=== PATIENT | female | born 1990 | race African-American/Black ===

== ENCOUNTER 2022-11-30 15:29 | Inpatient (IN) | payer SELFPAY ==
[2022-11-30 15:30] VITALS: BP 107/75; PULSE 89; RESP 18; TEMP 36.4; O2SAT 98; BMI 19.7
--- NOTE | 2022-11-30 15:39 | EX.ED.SAOD ---
HPI History of Present Illness Chief Complaint: Substance Abuse Informant: patient Narrative Narrative: Patient presents requesting detox from fentanyl. She does inject. She has never had injection site infections or valvular infections. She tried to go through detox in [place] on Saturday staying over the Saturday of this week. But she states she her nausea and vomiting was so bad she could not stay. She states they only gave her [id number] meds for nausea and she just kept vomiting and so she left. She is not having any physical complaints at this time. She was evidently recently just treated for syphilis and also found out to have hepatitis C and is in the process of further work-up and treatment for this. Her last use of fentanyl was about 5 hours ago. She normally uses 1 to 1-1/2 g/day. She used to be on outpatient Suboxone but relapsed about 5 or 6 weeks ago. She has not been using Suboxone since relapse. [facility] Medical History Hepatitis C Syphilis Medical History no medical history Home Medications NK 11/30/22 [History Last Taken Unknown] Allergy/AdvReac Type Severity Reaction Status Date / Time No Known Allergies Allergy Verified 11/30/22 15:31 Social History Smoking Status: Unknown if ever smoked ROS ROS ED ROS Narrative A complete review of systems was performed and is negative except as documented in the history of present illness. Some specific details below. Constitutional: No recent fevers or chills. No recent infections. EYE: No discharge ENT: No difficulty swallowing. No swelling. No pain. No reflux symptoms. CV: No chest pain palpitations or syncope Respiratory: No coughing or shortness of breath. GI: No abdominal pain. No nausea vomiting diarrhea. No blood in stool. She had nausea and vomiting during her last detox but not currently. : No frequency dysuria or hematuria. Musculoskeletal: No recent trauma. No pains. No swelling. Skin: No rash. Nondiaphoretic. Neuro: No weakness or numbness. Endocrine: No polyuria or polydipsia. EXAM Physical Exam Narrative Exam Narrative: CONSTITUTIONAL: Patient is nontoxic in appearance. The patient looks comfortable. Work of breathing looks normal. HEENT: No notable trauma. Mucous membranes moist. EYES: No conjunctival injection. No icterus noted. NECK:No JVD. No stridor. CARDIOVASCULAR: Regular rate. Regular rhythm. No notable murmur. No JVD. RESPIRATORY: No respiratory distress. Breathing is unlabored. No wheezes. No rhonchi. No rales. No pain with a deep breath. No chest wall tenderness. GASTROINTESTINAL: Not distended. Bowel sounds are normal. No tenderness. No guarding. No rebound. No palpable mass or palpable hepatomegaly. GENITOURINARY: No tenderness over the bladder. No CVA tenderness. MUSCULOSKELETAL: Atraumatic. No peripheral edema. No cord. No tenderness along the deep venous system. No asymmetry. No distended veins. NEUROLOGICAL: Patient is alert and appropriate. No focal deficit noted. SKIN: No noted rashes. No diaphoresis. She has small indication of track alvares in antecubital fossa but none of these look infected. They are not significant scarring. PSYCHIATRIC: Patient is calm. Mood is appropriate. No flight of ideas. Const Vital Signs: 11/30/22 15:30 Temperature 97.5 F L Temperature Source Temporal Pulse Rate 89 Respiratory Rate 18 Blood Pressure 107/75 Blood Pressure Mean 85 Pulse Ox 98 Oxygen Delivery Method Room Air MDM MDM MDM Narrative Medical decision making narrative: I will contact hospitalist to make sure we do have beds available and see what work-up for blood work is preferred. I talked with the hospitalist who placed orders for labs as preferred. We are awaiting the test as this will alter disposition. CBC is overall normal. Coagulation studies are normal. Electrolyte well. Liver function test showed no marked abnormalities. Alcohol level is negative. is negative Lab Data Attestation: I reviewed the patient's lab results. Labs: Laboratory Results - last 24 hr 11/30/22 11/30/22 11/30/22 16:12 16:30 16:32 WBC 9.6 RBC 4.45 Hgb 13.1 Hct 40.6 MCV 91.2 MCH 29.4 MCHC 32.3 RDW Std Deviation 40.6 RDW Coeff of Becki 12.1 Plt Count 313 MPV 8.7 Immature Gran % (Auto) 0.200 Neut % (Auto) 44.3 L Lymph % (Auto) 47.8 H [place] % (Auto) 4.7 Eos % (Auto) 2.8 Baso % (Auto) 0.2 Absolute Neuts (auto) 4.2 Absolute Lymphs (auto) 4.57 H Nucleated RBC % 0 PT 13.9 INR 1.1 Sodium 141 Potassium 3.8 Chloride 108 H Carbon Dioxide 28.0 Anion Gap 5 BUN 8 Creatinine 0.62 Estim Creat Clear Calc 113.80 Est GFR (MDRD) Af Amer 143 Est GFR (MDRD) Non-Af 118 BUN/Creatinine Ratio 12.9 Glucose 94 Calcium 8.8 Total Bilirubin 0.20 AST 10 L ALT 13 Alkaline Phosphatase 88 Total Protein 7.9 Albumin 3.3 Globulin 4.6 H Albumin/Globulin Ratio 0.7 L Serum , Qual NEGATIVE Ethyl Alcohol < 3.0 Management Discussion w/another healthcare provider: Hospitalist Discharge Plan Dx/Rx/DC Orders Clinical Impression: Desire for detoxification, Hx of syphilis, Fentanyl dependence, History of hepatitis C Disposition Disposition: [facility]
--- NOTE | 2022-11-30 15:44 | PCM.HP.STD ---
HPI - General General Date of Admission: 11/30/22 Date of Service: 11/30/22 Chief Complaint: Opioid withdrawal symptoms for a few hours HPI Narrative KERRY DESAI, is a 32 F with history of chronic IV opioid use/fentanyl for about 5 years came to ED for medical stabilization of acute opioid withdrawal symptoms. Patient is stated she takes about 1.5 to 2 g of IV fentanyl daily. She further said that she was sober for 6 months then relapsed about 3 weeks ago. She was on Suboxone heavy dose. Then she started having diarrhea, anxiety and restlessness and took IV fentanyl,. The last dose is about 5 and half hours to keep her sober so that she can come to ED. Prior to this, she tried to go to detox in [place] on Saturday and stayed there until Saturday, then she left probably signed AMA. She had labs drawn there probably on Saturday that came positive for syphilis, and hep C antibody. She further added that the nurse from the health department came today at her home and gave him 1 dose of IM penicillin probably benzathine penicillin. Labs were ordered in ED. Past surgical history: Had hysterectomy for menorrhagia and irregular.. Social history: Chronic fentanyl IV/opioid use: Denies alcohol drinking. Smokes a pack per day since age of 28. Denies other substance use including methamphetamine, crack cocaine, bath salt, ecstasy Family history noncontributory to the present illness [facility] Medical History Hepatitis C Syphilis Medical History no medical history Home Medications NK 11/30/22 [History Last Taken Unknown] Allergy/AdvReac Type Severity Reaction Status Date / Time No Known Allergies Allergy Verified 11/30/22 15:31 Social History Smoking Status: Current every day smoker tobacco type: cigarettes ROS ROS Narrative Constitutional: Reports fatigue and weakness. No fever. HEENT: Reports systems reviewed and no addt'l complaints, except as documented Respiratory/Chest: Mild cough for about 2 days. No acute shortness of breath or respiratory distress or wheezing. CVS: No chest pain but has palpitation and heart racing. Gastrointestinal: Was vomiting about 2 to 3 days ago when she was admitted in [place]. Denies coffee ground emesis, hematemesis. Genitourinary: Had hysterectomy. Denies burning urination or new urinary tract symptoms Musculoskeletal: Denies acute joint pain or limited range of motion. No acute injury Neurologic: Denies seizure-like symptoms. skin: No ulcer. No rash Endocrinology: Reports systems reviewed and no addt'l complaints, except as documented Hematologic/Lymphatic: Reports systems reviewed and no addt'l complaints, except as documented Rest 14 ROS are negative except as mentioned in HPI Vital Signs Vital Signs Vital Signs: 11/30/22 15:30 Temperature 97.5 F L Temperature Source Temporal Pulse Rate 89 Respiratory Rate 18 Blood Pressure 107/75 Blood Pressure Mean 85 Pulse Ox 98 Oxygen Delivery Method Room Air Weight Weight: 122 lb Body Mass Index (BMI) 19.7 Physical Exam Narrative General: Alert, Oriented x3, Cooperative HEENT: Atraumatic, PERRLA, EOMI, Normocephalic Oral: Oral mucosa dry. No Gingival or Mucosal Lesions/ Ulcerations Neck: Supple, No JVD, Negative Carotid Bruits Lungs: Air entry diminished in bilateral lung bases. No crepitation/rhonchi Cardiovascular: Regular rate, Regular Rhythm, Normal S1, Normal S2, No murmurs Abdomen: Bowel Sounds Present, Soft, Non Tender, Non-Distended : No renal angle tenderness. No suprapubic tenderness. Extremities: No edema, Capillary Refill Less than 3 Seconds Skin: needle tracks Scar over bilateral cubital region. Musculoskeletal: No Tenderness to Palpation of Joints or Extremities. ROM full and intact. Neurological: Cranial nerves II-XII grossly intact, DTR 2+/4. No acute focal neurological deficit. Psych/Mental Status: Flat affect, restless. Results Lab / Micro Data 11/30/22 16:12 11/30/22 16:12 Assessment & Plan Assessment/Plan (1) Acute hyperactive opioid withdrawal delirium: PLAN: This 32-year-old female is being admitted for acute opioid withdrawal syndrome. 1. Acute opioid withdrawal syndrome with history of chronic opioid use, dependence and relapse: Patient is being admitted on MedSurg floor. The patient is started on buprenorphine along with other adjunctive medications as needed for medical stabilization as per order set of opioid withdrawal syndrome.Patient also on trazodone, hydroxyzine, gabapentin as needed ordered. Advised quitting opioid use. manager services consult. 2. Chronic cigarette smoking/nicotine use disorder and dependence: On nicotine transdermal patch. 3. Recent diagnosis of chronic hepatitis C and syphilis, unclear of duration/stage of syphilis: As mentioned in HPI, her blood test drawn annual came positive for hep C antibody and syphilis, details of the test is not available for review. Patient had 1 dose of IM benzathine penicillin on both buttocks from nurse of health department. She was not told whether she needs further doses of IM benzathine penicillin. Patient will need to follow-up with ID as an outpatient for further evaluation and management of chronic hepatitis C and specific treponemal test of syphilis. I talked to Dr. Cruz and and no recommendation for further testing while in the hospital but can follow-up in ID clinic. DVT prophylaxis, low risk: Early ambulation encouraged. Labs reviewed. Serum test negative. Liver chemistry actually AST low but otherwise normal. Globulin 4.6. Laboratory Results 11/30/22 16:12: WBC 9.6, RBC 4.45, Hgb 13.1, Hct 40.6, MCV 91.2, MCH 29.4, MCHC 32.3, RDW Std Deviation 40.6, RDW Coeff of Becki 12.1, Plt Count 313, MPV 8.7, Immature Gran % (Auto) 0.200, Neut % (Auto) 44.3 L, Lymph % (Auto) 47.8 H, [place] % (Auto) 4.7, Eos % (Auto) 2.8, Baso % (Auto) 0.2, Absolute Neuts (auto) 4.2, Absolute Lymphs (auto) 4.57 H, Nucleated RBC % 0, Sodium 141, Potassium 3.8, Chloride 108 H, Carbon Dioxide 28.0, Anion Gap 5, BUN 8, Creatinine 0.62, Estim Creat Clear Calc 113.80, Est GFR (MDRD) Af Amer 143, Est GFR (MDRD) Non-Af 118, BUN/Creatinine Ratio 12.9, Glucose 94, Calcium 8.8, Total Bilirubin 0.20, AST 10 L, ALT 13, Alkaline Phosphatase 88, Total Protein 7.9, Albumin 3.3, Globulin 4.6 H, Albumin/Globulin Ratio 0.7 L, Serum , Qual NEGATIVE 11/30/22 16:30: PT 13.9, INR 1.1 11/30/22 16:32: Ethyl Alcohol < 3.0 Charges/Coding Visit Charges Inpatient E&M: 69843 Init Hosp L3
[2022-11-30 16:22] LABS: Absolute Lymphocyte Count 4.57 X10^3/uL (0.83-4.51); Absolute Neutrophil Count 4.2 X10^3/uL (2.0-7.7); Basophil# 0.02 X10^3/uL; Basophil% 0.2 % (0-1); Eosinophil# 0.27 X10^3/uL; Eosinophils% 2.8 % (0-5); Hematocrit 40.6 % (37-47); Hemoglobin 13.1 g/dL (12.0-15.0); Lymphocyte # 4.57 X10^3/ul (0.83-4.51); Lymphocyte % 47.8 % (19-41); Mean Corp Hgb Conc 32.3 g/dL (32-36); Mean Corpuscular Hgb 29.4 pg (27.0-32.0); Mean Corpuscular Volume 91.2 fL (81-99); Mean Platelet Vol. 8.7 fl (6.2-12.0); Monocyte# 0.45 X10^3/uL; Monocyte% 4.7 % (0-10); NRBC Flagged by Analyzer 0 % (0-5); Neutrophil # 4.24 X10^3/uL (2.7-7.7); Neutrophil % 44.3 % (47-70); Platelet Count 313 K/mm3 (150-450); RBC Distribution Width CV 12.1 % (11.6-14.6); RBC Distribution Width SD 40.6 fl (35.1-43.9); Red Blood Count 4.45 M/mm3 (4.2-5.4); White Blood Count 9.6 K/mm3 (4.4-11.0)
--- NOTE | 2022-11-30 16:53 | CM.ED ---
Social Work SW introduced self and role to patient. Pt is here to detox from fentanyl and reports being an IV user. Pt reports she was clean for 6 months and is part of a MAT program in [place]. Pt reports a recent relapse. Pt is possibly interested in rehab after detox, one-eighty to be notified of admission. Valentina Resendiz EMAIL MARKETING ASSISTANT, ETHYLBENZENE CONVERTER OPERATOR
[2022-11-30 16:54] LABS: International Normalized Ratio 1.1; Prothrombin Time (Protime)PT. 13.9 SECONDS (11.7-14.9)
[2022-11-30 16:55] LABS: Internal QC Validated? YES +Cl - CLEAR BKGD; Pregnancy, Serum, hCG Quali. NEGATIVE Negative
[2022-11-30 16:57] LABS: ALB/GLOB Ratio 0.7 RATIO (0.9-2.4); AST(SGOT) 10 U/L (15-37); Alanine Aminotransfer ALT/SGPT 13 U/L (13-56); Albumin, Serum 3.3 g/dL (3.2-5.0); Alkaline Phosphatase 88 U/L (45-117); Anion Gap 5 (5-15); BUN 8 mg/dL (7-18); BUN/Creat Ratio 12.9 RATIO (10-20); Calcium,Total 8.8 mg/dL (8.5-10.1); Chloride 108 mmol/L (98-107); Creatinine, Serum 0.62 mg/dL (0.55-1.02); EST Glomerular Filtration Rate 118 mL/min (>60); Est Glom Filt Rate - Afr Amer 143 mL/min (>60); Globulin 4.6 g/dL (2.2-4.2); Glucose 94 mg/dL (74-106); Potassium 3.8 mmol/L (3.5-5.1); Protein, Total 7.9 g/dL (6.4-8.2); Sodium Level 141 mmol/L (136-145)
[2022-11-30 17:08] LABS: Alcohol, Blood (Medical)-Serum < 3.0 mg/dL
--- NOTE | 2022-11-30 17:23 | NURSING ---
MED SURG MATT OPIATE ABUSE AND ADDICTION REQUESTING DETOX
[2022-11-30 17:28] VITALS: BP 110/79; PULSE 82; RESP 14; TEMP 36.2; O2SAT 98
[2022-11-30 18:26] VITALS: BMI 19.7
[2022-11-30] MEDS: hydrOXYzine PAM 25 MG Capsule 50 MG PO (18:52)
[2022-11-30] MEDS: Acetaminophen 500 MG Tablet PO (18:52)
[2022-11-30] MEDS: Potassium Chloride Oral Tablet 20 MEQ 40 MEQ PO (18:52)
[2022-11-30 20:02] VITALS: BP 88/63; PULSE 64; RESP 18; TEMP 37.3; O2SAT 95
[2022-11-30 20:03] VITALS: BP 89/60
[2022-11-30] MEDS: Gabapentin 300 MG Capsule PO (20:14)
[2022-11-30] MEDS: Senna Tablet 2 TABLET PO (20:14)
[2022-11-30 23:22] VITALS: BP 104/68; PULSE 50; RESP 16; TEMP 36.6; O2SAT 99
[2022-11-30 23:30] VITALS: PULSE 57
[2022-12-01 03:40] VITALS: BP 106/75; PULSE 57; RESP 16; TEMP 36.6; O2SAT 100
[2022-12-01] MEDS: hydrOXYzine PAM 25 MG Capsule 50 MG PO ×2 (03:53→11:25)
[2022-12-01] MEDS: Ondansetron 8 MG Tablet PO (06:36)
[2022-12-01 06:46] LABS: Bacteria 0 SEEN /hpf (None Seen); Mucous, Urine 0 SEEN /hpf (<or=2+); Red Blood Cells-Urine 0 SEEN /hpf (0-5); White Blood Cells 0 SEEN /hpf (0-5)
[2022-12-01 06:48] LABS: Color, Urine Yellow (Yellow); Glucose, Dipstick Normal (Normal); Ketone-Dipstick Negative (Negative); Leukocyte Esterase-Dipstick Negative /ul (Negative); Nitrite-Dipstick Negative (Negative); Occult Blood-Urine Negative /ul (Negative); Protein-Dipstick 15 mg/dl (Negative); Specific Gravity, Urine 1.015 (1.002-1.030); Urine Bilirubin Dipstick Negative (Negative); Urine Clarity Clear (Clear); Urine Urobilinogen 1 mg/dl (Normal)
[2022-12-01 07:00] LABS: Squamous Epithelial Cells - UA 5-10 SEEN /hpf (5-10)
[2022-12-01 07:21] LABS: Amphetamine Urine VISTA NEGATIVE (<1000 ng/mL); Barbiturate Urine VISTA NEGATIVE (< 200 ng/mL); Benzodiazepine Urine VISTA NEGATIVE (< 200 ng/mL); Cocaine Urine VISTA NEGATIVE (< 300 ng/mL); Ecstacy Urine VISTA NEGATIVE (< 500 ng/mL); Methadone Urine VISTA NEGATIVE (< 300 ng/mL); PCP Urine VISTA NEGATIVE (< 25 ng/mL); THC Urine VISTA NEGATIVE (< 50 ng/mL); Vista UDS pH Range 7
--- NOTE | 2022-12-01 07:45 | PCM.PN.HOSP ---
Reason for Visit Reason for Visit: Diagnoses Opioid use, unspecified with withdrawal (11/30/22) Subjective Subjective Was feeling worse and eventually agreed to take buprenorphine Objective Data Objective Data Vital Signs: Vital Signs Temp Pulse Resp BP Pulse Ox O2 Del Method 36.6 C 57 L 16 106/75 100 Room Air 12/01/22 03:40 12/01/22 03:40 12/01/22 03:40 12/01/22 03:40 12/01/22 03:40 12/01/22 03:40 Oxygen Delivery Method Room Air Weight: 55.338 kg Body Mass Index (BMI) 19.7 Intake & Output: Intake and Output for Last 24 Hours 11/29/22 11/30/22 12/01/22 23:59 23:59 23:59 Intake Total 300 / 300 350 / 350 Balance 300 / 300 350 / 350 Lab / Micro Data 11/30/22 16:12 11/30/22 16:12 Labs: Laboratory Results - last 24 hr 11/30/22 16:12: WBC 9.6, RBC 4.45, Hgb 13.1, Hct 40.6, MCV 91.2, MCH 29.4, MCHC 32.3, RDW Std Deviation 40.6, RDW Coeff of Becki 12.1, Plt Count 313, MPV 8.7, Immature Gran % (Auto) 0.200, Neut % (Auto) 44.3 L, Lymph % (Auto) 47.8 H, [place] % (Auto) 4.7, Eos % (Auto) 2.8, Baso % (Auto) 0.2, Absolute Neuts (auto) 4.2, Absolute Lymphs (auto) 4.57 H, Nucleated RBC % 0, Sodium 141, Potassium 3.8, Chloride 108 H, Carbon Dioxide 28.0, Anion Gap 5, BUN 8, Creatinine 0.62, Estim Creat Clear Calc 113.80, Est GFR (MDRD) Af Amer 143, Est GFR (MDRD) Non-Af 118, BUN/Creatinine Ratio 12.9, Glucose 94, Calcium 8.8, Total Bilirubin 0.20, AST 10 L, ALT 13, Alkaline Phosphatase 88, Total Protein 7.9, Albumin 3.3, Globulin 4.6 H, Albumin/Globulin Ratio 0.7 L, Serum , Qual NEGATIVE 11/30/22 16:30: PT 13.9, INR 1.1 11/30/22 16:32: Ethyl Alcohol < 3.0 12/01/22 06:30: Urine Color Yellow, Urine Clarity Clear, Urine pH 7.0, Ur Specific [place] 1.015, Urine Protein 15 H, Urine Glucose (UA) Normal, Urine Ketones Negative, Urine Occult Blood Negative, Urine Nitrite Negative, Urine Bilirubin Negative, Urine Urobilinogen 1 H, Ur Leukocyte Esterase Negative, Urine RBC 0 SEEN, Urine WBC 0 SEEN, Ur Squamous Epith Cells 5-10 SEEN, Urine Bacteria 0 SEEN, Urine Mucus 0 SEEN, Urine Opiates Screen NEGATIVE, Urine Methadone Screen NEGATIVE, Ur Barbiturates Screen NEGATIVE, Ur Phencyclidine Scrn NEGATIVE, Ur Amphetamines Screen NEGATIVE, MDMA (Ecstasy) Screen NEGATIVE, U Benzodiazepines Scrn NEGATIVE, Urine Cocaine Screen NEGATIVE, U Cannabinoids Screen NEGATIVE, Ur Drug Screen Comment Physical Exam Const alert Constitutional Narrative: ill appearing. Assessment & Plan Assessment/Plan (1) Acute hyperactive opioid withdrawal delirium: PLAN: Acute opioid withdrawal syndrome with history of chronic opioid use, dependence and relapse: Continue buprenorphine taper along with other adjunctive medications as needed for medical stabilization as per order set of opioid withdrawal syndrome. Addiction med to facilitate outpt treatment Pt finally agreed to take buprenorphine. DW the difference bw Subutext and Suboxone and that Subutext does not cause precipitated withdrawal. unfortunately a couple hours after I saw the patient, she left AMA. PLAN: Plan Chronic cigarette smoking/nicotine use disorder and dependence: On nicotine transdermal patch. Recent diagnosis of chronic hepatitis C and syphilis, unclear of duration/stage of syphilis: As mentioned in HPI, her blood test drawn annual came positive for hep C antibody and syphilis, details of the test is not available for review. Patient had 1 dose of IM benzathine penicillin on both buttocks from nurse of health department. She was not told whether she needs further doses of IM benzathine penicillin. Patient will need to follow-up with ID as an outpatient for further evaluation and management of chronic hepatitis C and specific treponemal test of syphilis. Dr. Cruz did not recommend further testing while in the hospital but can follow-up in ID clinic. DVT prophylaxis, low risk: Early ambulation encouraged.
[2022-12-01] MEDS: Gabapentin 300 MG Capsule PO (07:46)
[2022-12-01] MEDS: Methocarbamol 750 MG Tablet 1500 MG PO (07:46)
[2022-12-01 08:26] VITALS: BP 101/76; PULSE 71; RESP 15; TEMP 37; O2SAT 99
[2022-12-01] MEDS: cloNIDine HCl 0.1 MG Tablet PO (09:16)
[2022-12-01] MEDS: Buprenorphine HCl 2 MG TAB.SUBL 4 MG SL (09:22)
--- NOTE | 2022-12-01 12:16 | NURSING ---
pt leaving AMA
--- NOTE | 2022-12-01 12:18 | DS.PCM_ITS ---
Providers Date of Admission: 11/30/22 Primary Care Physician: No Primary Care Phys Reason For Visit: OPIATE ABUSE,AND ADICTION REQUESTING DETOX Diagnosis Discharge Diagnosis (1) Acute hyperactive opioid withdrawal delirium: Status: Acute Code(s): F11.93 - Opioid use, unspecified with withdrawal Plan: Acute opioid withdrawal syndrome with history of chronic opioid use, dependence and relapse: Continue buprenorphine taper along with other adjunctive medications as needed for medical stabilization as per order set of opioid withdrawal syndrome. Addiction med to facilitate outpt treatment Pt finally agreed to take buprenorphine. DW the difference bw Subutext and Suboxone and that Subutext does not cause precipitated withdrawal. unfortunately a couple hours after I saw the patient, she left AMA. Plan Chronic cigarette smoking/nicotine use disorder and dependence: On nicotine transdermal patch. Recent diagnosis of chronic hepatitis C and syphilis, unclear of duration/stage of syphilis: As mentioned in HPI, her blood test drawn annual came positive for hep C antibody and syphilis, details of the test is not available for review. Patient had 1 dose of IM benzathine penicillin on both buttocks from nurse of health department. She was not told whether she needs further doses of IM benzathine penicillin. Patient will need to follow-up with ID as an outpatient for further evaluation and management of chronic hepatitis C and specific t reponemal test of syphilis. Dr. Cruz did not recommend further testing while in the hospital but can follow-up in ID clinic. DVT prophylaxis, low risk: Early ambulation encouraged. Medications at Discharge Home Medications NK 11/30/22 Hospital Course Operations None Procedures None Weight / BMI Weight Weight: 55.338 kg Body Mass Index (BMI) 19.7 ABG / Lab / Microbiology Data 11/30/22 16:12 11/30/22 16:12 Laboratory: Laboratory Results - last 24 hr 11/30/22 16:12: WBC 9.6, RBC 4.45, Hgb 13.1, Hct 40.6, MCV 91.2, MCH 29.4, MCHC 32.3, RDW Std Deviation 40.6, RDW Coeff of Becki 12.1, Plt Count 313, MPV 8.7, Immature Gran % (Auto) 0.200, Neut % (Auto) 44.3 L, Lymph % (Auto) 47.8 H, [place] % (Auto) 4.7, Eos % (Auto) 2.8, Baso % (Auto) 0.2, Absolute Neuts (auto) 4.2, Absolute Lymphs (auto) 4.57 H, Nucleated RBC % 0, Sodium 141, Potassium 3.8, Chloride 108 H, Carbon Dioxide 28.0, Anion Gap 5, BUN 8, Creatinine 0.62, Estim Creat Clear Calc 113.80, Est GFR (MDRD) Af Amer 143, Est GFR (MDRD) Non-Af 118, BUN/Creatinine Ratio 12.9, Glucose 94, Calcium 8.8, Total Bilirubin 0.20, AST 10 L, ALT 13, Alkaline Phosphatase 88, Total Protein 7.9, Albumin 3.3, Globulin 4.6 H, Albumin/Globulin Ratio 0.7 L, Serum , Qual NEGATIVE 11/30/22 16:30: PT 13.9, INR 1.1 11/30/22 16:32: Ethyl Alcohol < 3.0 12/01/22 06:30: Urine Color Yellow, Urine Clarity Clear, Urine pH 7.0, Ur Specific [place] 1.015, Urine Protein 15 H, Urine Glucose (UA) Normal, Urine Ketones Negative, Urine Occult Blood Negative, Urine Nitrite Negative, Urine Bilirubin Negative, Urine Urobilinogen 1 H, Ur Leukocyte Esterase Negative, Urine RBC 0 SEEN, Urine WBC 0 SEEN, Ur Squamous Epith Cells 5-10 SEEN, Urine Bacteria 0 SEEN, Urine Mucus 0 SEEN, Urine Opiates Screen NEGATIVE, Urine Methadone Screen NEGATIVE, Ur Barbiturates Screen NEGATIVE, Ur Phencyclidine Scrn NEGATIVE, Ur Amphetamines Screen NEGATIVE, MDMA (Ecstasy) Screen NEGATIVE, U Benzodiazepines Scrn NEGATIVE, Urine Cocaine Screen NEGATIVE, U Cannabinoids Screen NEGATIVE, Ur Drug Screen Comment Meaningful Use Info Meaningful Use Diagnoses (Choose all that apply): None applicable Discharge Plan Admission Admit Date/Time: 11/30/22 18:24 Primary Reason for Your Visit: opiate withdrawal Attending Provider: Ryan Villafuerte Primary Care Provider: Care Physician,No Primary Consulting Providers: Kg Peterson Discharge Orders/Prescriptions Prescriptions: No Action NK Referrals / Follow Up: Care Physician,No Primary [Primary Care Provider] - Disposition Disposition (needs filled in before D/C Order can be placed): Against Medical Advice Charges/Coding Visit Charges Inpatient E&M: 01521 Disch Hosp
== END 2022-12-01 12:36 | disposition left against medical advice (07) | DRG 894 ==
LOC: ED 16:56 → MS3 17:43
PROVIDERS: Admitting Provider Internal Medicine; Emergency Provider Emergency Medicine
DX: F11.23 Opioid dependence with withdrawal (principal); B18.2 Chronic viral hepatitis C; F17.210 Nicotine dependence, cigarettes, uncomplicated; Z53.29 Procedure and treatment not carried out because of patient's decision for other reasons; Z86.19 Personal history of other infectious and parasitic diseases
CPT/HCPCS: 36415; 80053; 80307; 81001; 82077; 84703; 85025; 85610; 97802; 99283